=== PATIENT | female | born 1995 | race Caucasian/White ===

== ENCOUNTER 2016-04-03 16:38 | Emergency (ER) | payer SELFPAY ==
[2016-04-03 17:02] VITALS: BP 109/56; PULSE 93; TEMP 98.9
[2016-04-03 17:04] VITALS: BMI 24.6
[2016-04-03 17:32] LABS: AUTOMATED BASOPHIL 0.9 % (0-2); AUTOMATED EOSINOPHIL 1.4 % (0-5); AUTOMATED MONOCYTE 7.5 % (3-10); AUTOMATED NEUTROPHIL 65.2 % (45-76); MPV 8.8 fL (7.4-10.4)
[2016-04-03 17:41] LABS: BLOOD UREA NITROGEN 15 MG/DL (7-17); CALCIUM 9.8 MG/DL (8.4-10.2); CALCULATED OSMOLALITY 266 MOs/Kg (270-290); CHLORIDE 101 mEq/L (98-107); GLUCOSE 85 MG/DL (70-99); SODIUM LEVEL 138 mEq/L (137-146); TOTAL PROTEIN 7.5 G/DL (6.3-8.2)
[2016-04-03 17:43] LABS: LEUKOCYTES/URINE NEG (NEGATIVE); NITRITE/URINE NEG (NEGATIVE); URINE OCCULT BLOOD NEG (NEG/TRACE)
== END 2016-04-03 19:38 | disposition left against medical advice (07) ==
LOC: ED 16:38
DX: R10.9 Unspecified abdominal pain (principal)
CPT/HCPCS: 80053; 81001; 81025; 84702; 85025; 99281